=== PATIENT | female | born 1965 | race Caucasian/White ===

== ENCOUNTER 2016-10-26 22:00 | Emergency (ER) | payer MEDICAID, OTHER ==
[~2016-10-26] VITALS: Ht 162.6 cm; Wt 90.0 kg
[2016-10-26 22:25] VITALS: Ht 162.6 cm; Wt 90.0 kg
--- NOTE | 2016-10-26 23:58 | ERD ---
ER Documentation Chief Complaint Date/Time DATE: 10/26/16 TIME: 23:55 Chief Complaint left lower toothache x 2 days HPI Patient is a 51-year-old female who presents with gradual onset, constant, progressive pain to left lower second molar for 2 days. She states that the tooth is loose. She states that she has pain that radiates to her ear and submandibular area. She denies difficulty opening her mouth, fever, drainage. She tried to see her dentist, was unable to obtain an appointment. ROS All systems reviewed and are negative except as per history of present illness. Allergies Allergies: Coded Allergies: No Known Drug Allergies (Verified Allergy, Unknown, 10/26/16) PMhx/Soc Past medical history: Diabetes, hypertension, hyperlipidemia Past surgical history: None Social history: Denies tobacco or alcohol. Last menstrual period was 2 years ago FmHx Family History: diabetes, No coronary disease Physical Exam Vitals Vital Signs Date Time Temp Pulse Resp B/P Pulse Ox O2 Delivery O2 Flow Rate FiO2 10/26/16 22:25 97.3 76 20 222/97 97 Physical Exam Const: Alert, no acute distress Head: Atraumatic Eyes: Normal Conjunctiva, no pallor, no icterus ENT: Normal External Ears, Nose and Mouth. Loose #18. No gingival swelling or fluctuance. No sublingual or submandibular induration. No trismus. No voice change. Normal tympanic membrane. Neck: Full range of motion. No adenopathy. No meningismus. Resp: Clear to auscultation bilaterally, no wheezes, no rales Cardio: Regular rate and rhythm, no murmurs Abd: Soft, non tender, non distended. Skin: No petechiae or rashes Back: No midline or flank tenderness Ext: No cyanosis, or edema Neur: Awake and alert Psych: Normal Mood and Affect Procedures/MDM MDM: Patient is a 51-year-old female who presents with pain and mild swelling associated with a loose tooth. This is suggestive of a dental infection. There is no sign of a drainable periapical abscess. There is no evidence of deep space infection. I will discharge the patient with analgesics and a 10 day course of penicillin. Advised the patient to call her dentist to arrange follow-up as soon as possible. Advised to return to the ER for any new or worsening symptoms. Departure Diagnosis: Primary Impression: Dental infection Condition: Stable GEORGIA RAMOS MD Oct 26, 2016 23:58
[2016-10-26] MEDS ORDERED: TRAM50TA2 PO (23:59)
[2016-10-26] MEDS ORDERED: PEN500 PO (23:59)
[2016-10-26] MEDS ORDERED: IBUP-1542 PO (23:59)
[2016-10-27] VITALS: BP 185/83; PULSE 84
== END 2016-10-27 00:17 | disposition home or self-care (01) ==
LOC: E/R 22:00
DX: K04.7 Periapical abscess without sinus (principal); E11.9 Type 2 diabetes mellitus without complications; I10 Essential (primary) hypertension
CPT/HCPCS: 99284